=== PATIENT | male | born 1970 | race Caucasian/White ===

== ENCOUNTER 2020-11-15 02:57 | Inpatient (IN) | payer BC ==
[~2020-11-15] VITALS: Ht 188 cm; Wt 118.0 kg
[2020-11-15 03:34] LABS: BASOPHILS # (AUTO) 0.1 X10'3 (0-0.2); BASOPHILS % (AUTO) 0.6 % (0-1); EOSINOPHILS # (AUTO) 0.4 X10'3 (0-0.9); EOSINOPHILS % (AUTO) 3.9 % (0-6); HEMATOCRIT 48.7 % (42.0-52.0); HEMOGLOBIN 16.5 g/dl (14.0-17.9); LYMPHOCYTES # (AUTO) 3.9 X10'3 (1.1-4.8); LYMPHOCYTES % (AUTO) 39.8 % (21-51); MEAN CORPUSCULAR HEMOGLOBIN 31.3 PG (27.0-31.0); MEAN CORPUSCULAR HGB CONC 33.8 g/dL (33.0-36.5); MEAN CORPUSCULAR VOLUME 92.4 FL (78-98); MEAN PLATELET VOLUME 9.5 FL (7.4-10.4); MONOCYTES # (AUTO) 0.9 X10'3 (0-0.9); MONOCYTES % (AUTO) 8.9 % (2-12); NEUTROPHILS # (AUTO) 4.6 X10'3 (1.8-7.7); NEUTROPHILS % (AUTO) 46.8 % (42-75); PLATELET COUNT 185 X10'3 (140-440); RED BLOOD COUNT 5.27 X10'6 (4.70-6.10); RED CELL DISTRIBUTION WIDTH 12.6 % (11.5-14.5); WHITE BLOOD COUNT 9.9 X10'3 (4.5-11.0)
[2020-11-15] MEDS: metoprolol tartrate 1mg/ml inj IV SCH ×3 (03:36→04:00)
[2020-11-15 03:49] LABS: ALANINE AMINOTRANSFERASE 46 U/L (12-78); ALBUMIN 3.8 G/DL (3.4-5.0); ALKALINE PHOSPHATASE 85 IU/L (46-116); ANION GAP 11 (8-16); ASPARTATE AMINO TRANSFERASE 22 U/L (10-37); BILIRUBIN,TOTAL 0.3 MG/DL (0.1-1.0); BLOOD UREA NITROGEN 23 MG/DL (7-18); BUN/CREATININE RATIO 24.2 (5.4-32.0); CALCIUM 9.4 MG/DL (8.5-10.1); CHLORIDE 106 MMOL/L (99-107); CREATININE 0.95 MG/DL (0.60-1.10); GLUCOSE 141 MG/DL (70-104); SODIUM 145 MMOL/L (135-145); TOTAL CARBON DIOXIDE 28.5 MMOL/L (24-32); TOTAL PROTEIN 7.6 G/DL (6.4-8.2); eGFR 85 ML/MIN
[2020-11-15 03:52] LABS: POTASSIUM 2.9 MMOL/L (3.5-5.1)
[2020-11-15] MEDS ORDERED: potassium Cl 20 mEq SR tablet PO STA (03:58)
[2020-11-15] MEDS ORDERED: normal saline 1000ml 1,000 ML IV ONE (04:00)
[2020-11-15] MEDS ORDERED: magnesium 2GM in 50ml NS 50 ML IV ONE (04:00)
[2020-11-15] MEDS ORDERED: ASPI-1265 PO (04:24)
[2020-11-15] MEDS ORDERED: METO-395 PO (04:24)
[2020-11-15] MEDS ORDERED: HYDROcodone/acetaminophen 10/325mg tab PO PRN (05:40)
[2020-11-15] MEDS ORDERED: acetaminophen 325mg tablet PO PRN ×2 (05:40)
[2020-11-15] MEDS ORDERED: potassium Cl 20 mEq SR tablet PO PRN ×2 (05:40)
[2020-11-15] MEDS ORDERED: potassium Cl 40MEQ/1/2NS 520ml 520 ML IV PRN ×2 (05:40)
[2020-11-15] MEDS ORDERED: acetaminophen 650mg rectal suppository RC PRN (05:40)
[2020-11-15] MEDS ORDERED: diphenhydrAMINE 25mg capsule PO PRN (05:40)
[2020-11-15] MEDS ORDERED: ondansetron/PF 4mg/2ml inj IV PRN (05:40)
[2020-11-15] MEDS ORDERED: morphine 2 MG/ML inj. syringe IV PRN ×2 (05:40)
[2020-11-15] MEDS ORDERED: magnesium hydroxide 30ml (MOM) UD suspension PO PRN (05:40)
[2020-11-15] MEDS ORDERED: HYDROcodone/acetaminophen 5mg/325mg tablet PO PRN (05:40)
[2020-11-15] MEDS ORDERED: mag hydrox/Alum hydrox/simeth 30ml oral suspension PO PRN (05:40)
[2020-11-15] MEDS ORDERED: bisacodyl 10mg suppository rectal RC PRN (05:40)
[2020-11-15] MEDS ORDERED: normal saline 1000ml 1,000 ML IV SCH (05:40)
[2020-11-15] MEDS ORDERED: diphenhydrAMINE 50 mg/ml inj IV PRN (05:40)
[2020-11-15] MEDS ORDERED: heparin 10,000 units/1 ML INJ IV ONE (05:45)
[2020-11-15] MEDS ORDERED: heparin 25,000 UNIT/250ml bag 250 ML IV SCH (05:45)
[2020-11-15] MEDS ORDERED: heparin 10,000 units/1 ML INJ IV PRN (05:45)
[2020-11-15 07:59] LABS: CLARITY,URINE CLEAR (Clear); COLOR,URINE YELLOW (Yellow); GLUCOSE, URINE NEGATIVE (Neg); KETONES,URINE TRACE mg/dl (Neg); LEUKOCYTE ESTERASE ,URINE NEGATIVE (Neg); NITRITES, URINE NEGATIVE (Neg); OCCULT BLOOD,URINE TRACE-INTACT (Neg); PH,URINE 5.5 (4.8-8.0); PROTEIN,URINE NEGATIVE (Neg); UROBILINOGEN,URINE 0.2 E.U/dL (0.2-1.0)
[2020-11-15] MEDS ORDERED: metoprolol succinate 25mg (24-HOUR) SR. Tablet PO SCH (08:00)
[2020-11-15] MEDS ORDERED: K and/or MAG REPLACEMENT MC SCH (08:00)
[2020-11-15] MEDS ORDERED: metoprolol tartrate 50mg tablet PO SCH (08:00)
[2020-11-15] MEDS ORDERED: docusate sod 100mg capsule PO SCH (08:00)
[2020-11-15] MEDS ORDERED: metoprolol tartrate 25mg tablet PO SCH (08:00)
[2020-11-15 08:03] LABS: UA COLLECTION TYPE VOIDED
[2020-11-15 08:04] LABS: RBC,URINE 0-2 /HPF (0-2); WBC,URINE 0-4 /HPF (0-4)
[2020-11-15 08:05] LABS: BACTERIA,URINE NONE SEEN /HPF (Neg); MUCUS STRANDS FEW /LPF (Neg); SQUAMOUS EPITHELIAL CELL,UR NONE SEEN /LPF (FEW)
[2020-11-15 08:16] LABS: URINE AMPHETAMINE SCREEN NEGATIVE (Neg); URINE BARBITUATE SCREEN NEGATIVE (Neg); URINE BENZODIAZEPINES SCREEN NEGATIVE (Neg); URINE CANNABINOID SCREEN NEGATIVE (Neg); URINE COCAINE SCREEN NEGATIVE (Neg); URINE METHADONE SCREEN NEGATIVE (Neg); URINE OPIATE SCREEN NEGATIVE (Neg); URINE PHENCYCLIDINE SCREEN NEGATIVE (Neg)
[2020-11-15 09:07] LABS: BASOPHILS # (AUTO) 0.1 X10'3 (0-0.2); EOSINOPHILS # (AUTO) 0.2 X10'3 (0-0.9); EOSINOPHILS % (AUTO) 3.2 % (0-6); HEMATOCRIT 47.2 % (42.0-52.0); HEMOGLOBIN 15.7 g/dl (14.0-17.9); LYMPHOCYTES # (AUTO) 2.6 X10'3 (1.1-4.8); LYMPHOCYTES % (AUTO) 33.6 % (21-51); MEAN CORPUSCULAR HEMOGLOBIN 30.8 PG (27.0-31.0); MEAN CORPUSCULAR HGB CONC 33.2 g/dL (33.0-36.5); MEAN CORPUSCULAR VOLUME 92.7 FL (78-98); MEAN PLATELET VOLUME 9.8 FL (7.4-10.4); MONOCYTES # (AUTO) 0.5 X10'3 (0-0.9); NEUTROPHILS # (AUTO) 4.3 X10'3 (1.8-7.7); NEUTROPHILS % (AUTO) 56.2 % (42-75); PLATELET COUNT 181 X10'3 (140-440); RED BLOOD COUNT 5.09 X10'6 (4.70-6.10); RED CELL DISTRIBUTION WIDTH 12.9 % (11.5-14.5); WHITE BLOOD COUNT 7.7 X10'3 (4.5-11.0)
[2020-11-15 09:21] LABS: PARTIAL THROMBOPLASTIN TIME 38 SECONDS (22-32)
[2020-11-15 09:22] LABS: D-DIMER < 0.19 MG/L FEU (0-0.50)
[2020-11-15 09:31] LABS: MAGNESIUM 2.3 MG/DL (1.5-2.4); PHOSPHORUS 3.1 MG/DL (2.3-4.5)
[2020-11-15 09:32] LABS: ETHANOL < 0.010 GM/DL (0.0-0.010); HEMOGLOBIN A1C 5.6 % (4.5-6.2); POTASSIUM 4.6 MMOL/L (3.5-5.1)
[2020-11-15 12:06] VITALS: BP 124/79
[2020-11-15] MEDS ORDERED: temazepam 15mg capsule PO PRN (21:00)
== END 2020-11-15 17:52 | disposition home or self-care (01) | DRG 310 ==
LOC: ER 02:58 → ED HOLD 05:39
PROVIDERS: ADMIT Family Medicine; ATTEND Family Medicine
DX: I48.20 Chronic atrial fibrillation, unspecified (principal); E87.6 Hypokalemia; E66.9 Obesity, unspecified; I10 Essential (primary) hypertension; E78.5 Hyperlipidemia, unspecified; Z80.8 Family history of malignant neoplasm of other organs or systems; I48.0 Paroxysmal atrial fibrillation; Z68.33 Body mass index [BMI] 33.0-33.9, adult; E86.0 Dehydration; I45.10 Unspecified right bundle-branch block; E78.00 Pure hypercholesterolemia, unspecified; Z79.82 Long term (current) use of aspirin; F17.210 Nicotine dependence, cigarettes, uncomplicated
CPT/HCPCS: 36415; 71045; 80053; 80305; 80320; 81001; 83036; 83735; 83880; 84100; 84132; 84443; 84484; 85025; 85379; 85610; 85730; 93005; G0378; J1644; J3475; J3490; J7030

== ENCOUNTER 2020-12-17 03:30 | Emergency (ER) | payer BC ==
[~2020-12-17] VITALS: Ht 188 cm; Wt 127.3 kg
[~2020-12-17 03:30] MED LIST: ASPI-1265 PO; METO-395 PO
[2020-12-17] MEDS ORDERED: metoprolol tartrate 1mg/ml inj IV SCH (03:55)
--- NOTE | 2020-12-17 04:12 | NUR ---
PT CONVERTED BACK TO NSR WHILE RESTING ON GURNEY - REPEAT EKG DONE AND STRIPS PRINTED FOR CHART
[2020-12-17 04:14] LABS: BASOPHILS % (AUTO) 0.5 % (0-1); EOSINOPHILS # (AUTO) 0.4 X10'3 (0-0.9); EOSINOPHILS % (AUTO) 4.5 % (0-6); HEMATOCRIT 46.5 % (42.0-52.0); LYMPHOCYTES # (AUTO) 3.2 X10'3 (1.1-4.8); LYMPHOCYTES % (AUTO) 40.3 % (21-51); MEAN CORPUSCULAR HEMOGLOBIN 31.7 PG (27.0-31.0); MEAN CORPUSCULAR HGB CONC 34.4 g/dL (33.0-36.5); MEAN CORPUSCULAR VOLUME 92.2 FL (78-98); MEAN PLATELET VOLUME 8.9 FL (7.4-10.4); MONOCYTES # (AUTO) 0.6 X10'3 (0-0.9); MONOCYTES % (AUTO) 7.5 % (2-12); NEUTROPHILS # (AUTO) 3.8 X10'3 (1.8-7.7); NEUTROPHILS % (AUTO) 47.2 % (42-75); PLATELET COUNT 183 X10'3 (140-440); RED BLOOD COUNT 5.04 X10'6 (4.70-6.10); RED CELL DISTRIBUTION WIDTH 12.8 % (11.5-14.5)
[2020-12-17 04:24] LABS: ALANINE AMINOTRANSFERASE 48 U/L (12-78); ALBUMIN 3.9 G/DL (3.4-5.0); ALBUMIN/GLOBULIN RATIO 1.1 (1.1-1.5); ALKALINE PHOSPHATASE 88 IU/L (46-116); ANION GAP 12 (8-16); ASPARTATE AMINO TRANSFERASE 23 U/L (10-37); BILIRUBIN,TOTAL 0.4 MG/DL (0.1-1.0); BLOOD UREA NITROGEN 17 MG/DL (7-18); CALCIUM 8.7 MG/DL (8.5-10.1); CHLORIDE 103 MMOL/L (99-107); CREATININE 0.81 MG/DL (0.60-1.10); GLUCOSE 124 MG/DL (70-104); POTASSIUM 3.4 MMOL/L (3.5-5.1); SODIUM 141 MMOL/L (135-145); TOTAL PROTEIN 7.4 G/DL (6.4-8.2); eGFR > 90 ML/MIN
[2020-12-17] MEDS ORDERED: potassium Cl 20 mEq SR tablet PO STA (04:33)
[2020-12-17 04:51] VITALS: BP 122/80
== END 2020-12-17 04:53 | disposition home or self-care (01) ==
LOC: ER 03:31
DX: I48.0 Paroxysmal atrial fibrillation (principal); E87.6 Hypokalemia; Z72.89 Other problems related to lifestyle; Z79.82 Long term (current) use of aspirin; Z79.899 Other long term (current) drug therapy
CPT/HCPCS: 36415; 71045; 80053; 83880; 84484; 85025; 93005; 99285

== ENCOUNTER 2021-07-02 02:53 | Emergency (ER) | payer BC ==
[~2021-07-02] VITALS: Ht 190.5 cm; Wt 122.7 kg
[2021-07-02 03:33] LABS: BASOPHILS # (AUTO) 0.1 X10'3 (0-0.2); BASOPHILS % (AUTO) 0.6 % (0-1); EOSINOPHILS # (AUTO) 0.4 X10'3 (0-0.9); EOSINOPHILS % (AUTO) 3.9 % (0-6); HEMATOCRIT 47.5 % (42.0-52.0); HEMOGLOBIN 16.1 g/dl (14.0-17.9); LYMPHOCYTES # (AUTO) 4.4 X10'3 (1.1-4.8); LYMPHOCYTES % (AUTO) 41.9 % (21-51); MEAN CORPUSCULAR HEMOGLOBIN 30.3 PG (27.0-31.0); MEAN CORPUSCULAR HGB CONC 33.8 g/dL (33.0-36.5); MEAN CORPUSCULAR VOLUME 89.5 FL (78-98); MEAN PLATELET VOLUME 8.7 FL (7.4-10.4); MONOCYTES % (AUTO) 9.7 % (2-12); NEUTROPHILS # (AUTO) 4.6 X10'3 (1.8-7.7); NEUTROPHILS % (AUTO) 43.9 % (42-75); PLATELET COUNT 219 X10'3 (140-440); RED CELL DISTRIBUTION WIDTH 12.9 % (11.5-14.5); WHITE BLOOD COUNT 10.6 X10'3 (4.5-11.0)
[2021-07-02 03:38] LABS: ALANINE AMINOTRANSFERASE 42 U/L (12-78); ALBUMIN/GLOBULIN RATIO 1.2 (1.1-1.5); ALKALINE PHOSPHATASE 80 IU/L (46-116); ANION GAP 13 (8-16); ASPARTATE AMINO TRANSFERASE 26 U/L (10-37); BILIRUBIN,TOTAL 0.4 MG/DL (0.1-1.0); BLOOD UREA NITROGEN 19 MG/DL (7-18); CALCIUM 9.1 MG/DL (8.5-10.1); CHLORIDE 105 MMOL/L (99-107); GLUCOSE 105 MG/DL (70-104); POTASSIUM 3.3 MMOL/L (3.5-5.1); SODIUM 144 MMOL/L (135-145); TOTAL CARBON DIOXIDE 25.7 MMOL/L (24-32); TOTAL PROTEIN 7.4 G/DL (6.4-8.2); eGFR 79 ML/MIN
[2021-07-02 03:47] LABS: MAGNESIUM 2.3 MG/DL (1.5-2.4)
[2021-07-02] MEDS ORDERED: metoprolol tartrate 1mg/ml inj IV PRN (03:50)
[2021-07-02 04:30] VITALS: BP 136/83
[2021-07-02] MEDS ORDERED: potassium Cl 20 mEq SR tablet PO STA (04:31)
== END 2021-07-02 05:15 | disposition home or self-care (01) ==
LOC: ER 02:54
DX: I48.0 Paroxysmal atrial fibrillation (principal); E87.6 Hypokalemia; R00.0 Tachycardia, unspecified; I48.91 Unspecified atrial fibrillation; Z72.89 Other problems related to lifestyle; Z79.82 Long term (current) use of aspirin; Z79.899 Other long term (current) drug therapy
CPT/HCPCS: 36415; 71045; 80053; 83735; 83880; 84484; 85025; 93005; 99285

== ENCOUNTER 2023-04-30 06:39 | Emergency (ER) | payer BC ==
[~2023-04-30] VITALS: Ht 188 cm; Wt 127.3 kg
[2023-04-30] MEDS ORDERED: CYCL-1 PO (07:57)
[2023-04-30 09:08] VITALS: BP 161/96; PULSE 70; TEMP 97.8; O2SAT 99
[2023-04-30 09:10] VITALS: RESP 13
[2023-04-30 09:23] LABS: ALANINE AMINOTRANSFERASE 50 U/L (12-78); ALBUMIN 3.9 G/DL (3.4-5.0); ALBUMIN/GLOBULIN RATIO 1.1 (1.1-1.5); ALKALINE PHOSPHATASE 92 IU/L (46-116); ANION GAP 5 (8-16); ASPARTATE AMINO TRANSFERASE 21 U/L (10-37); BILIRUBIN,TOTAL 0.4 MG/DL (0.1-1.0); BLOOD UREA NITROGEN 16 MG/DL (7-18); CALCIUM 9.2 MG/DL (8.5-10.1); CHLORIDE 106 MMOL/L (99-107); GLUCOSE 111 MG/DL (70-104); POTASSIUM 4.9 MMOL/L (3.5-5.1); SODIUM 139 MMOL/L (135-145); TOTAL CARBON DIOXIDE 28.5 MMOL/L (24-32); TOTAL PROTEIN 7.3 G/DL (6.4-8.2); eCRCL 103 ML/MIN; eGFR 79 ML/MIN
[2023-04-30 09:30] LABS: PRO BRAIN NATRIURETIC PEPTIDE 68 PG/ML (0-125)
[2023-04-30 09:35] LABS: BASOPHILS % (AUTO) 0.6 % (0-1); EOSINOPHILS # (AUTO) 0.2 X10'3 (0-0.9); EOSINOPHILS % (AUTO) 2.5 % (0-6); HEMATOCRIT 46.6 % (42.0-52.0); HEMOGLOBIN 15.5 g/dl (14.0-17.9); LYMPHOCYTES # (AUTO) 1.9 X10'3 (1.1-4.8); LYMPHOCYTES % (AUTO) 24.7 % (21-51); MEAN CORPUSCULAR HEMOGLOBIN 29.9 PG (27.0-31.0); MEAN CORPUSCULAR HGB CONC 33.2 g/dL (33.0-36.5); MEAN CORPUSCULAR VOLUME 89.9 FL (78-98); MEAN PLATELET VOLUME 8.8 FL (7.4-10.4); MONOCYTES # (AUTO) 0.4 X10'3 (0-0.9); MONOCYTES % (AUTO) 5.8 % (2-12); NEUTROPHILS # (AUTO) 5.2 X10'3 (1.8-7.7); NEUTROPHILS % (AUTO) 66.4 % (42-75); PLATELET COUNT 204 X10'3 (140-440); RED BLOOD COUNT 5.18 X10'6 (4.70-6.10); RED CELL DISTRIBUTION WIDTH 13.1 % (11.5-14.5); WHITE BLOOD COUNT 7.8 X10'3 (4.5-11.0)
== END 2023-04-30 10:09 | disposition home or self-care (01) ==
LOC: ER 06:40
DX: R07.89 Other chest pain (principal)
CPT/HCPCS: 36415; 71045; 80053; 83880; 84484; 85025; 93005; 99285

== ENCOUNTER 2023-08-11 00:30 | Emergency (ER) | payer BC ==
[~2023-08-11] VITALS: Ht 188 cm; Wt 129.0 kg
[~2023-08-11 00:30] MED LIST changes: +CYCL-1 PO
[2023-08-11] MEDS ORDERED: normal saline 1000ml 1,000 ML IV ONE (00:45)
[2023-08-11 01:01] LABS: EOSINOPHILS # (AUTO) 0.5 X10'3 (0-0.9); HEMOGLOBIN 16.7 g/dl (14.0-17.9)
[2023-08-11] MEDS: metoprolol tartrate 1mg/ml inj IV SCH ×2 (01:05→01:17)
[2023-08-11 01:09] LABS: BASOPHILS # (AUTO) 0.1 X10'3 (0-0.2); BASOPHILS % (AUTO) 1.2 % (0-1); EOSINOPHILS % (AUTO) 3.7 % (0-6); HEMATOCRIT 48.8 % (42.0-52.0); LYMPHOCYTES # (AUTO) 5.2 X10'3 (1.1-4.8); LYMPHOCYTES % (AUTO) 42.1 % (21-51); MEAN CORPUSCULAR HEMOGLOBIN 30.3 PG (27.0-31.0); MEAN CORPUSCULAR HGB CONC 34.2 g/dL (33.0-36.5); MEAN CORPUSCULAR VOLUME 88.6 FL (78-98); MEAN PLATELET VOLUME 9.1 FL (7.4-10.4); MONOCYTES % (AUTO) 8.5 % (2-12); NEUTROPHILS # (AUTO) 5.5 X10'3 (1.8-7.7); NEUTROPHILS % (AUTO) 44.5 % (42-75); PLATELET COUNT 243 X10'3 (140-440); RED BLOOD COUNT 5.51 X10'6 (4.70-6.10); RED CELL DISTRIBUTION WIDTH 13.3 % (11.5-14.5); WHITE BLOOD COUNT 12.3 X10'3 (4.5-11.0)
[2023-08-11 01:17] LABS: ALANINE AMINOTRANSFERASE 53 U/L (12-78); ALBUMIN/GLOBULIN RATIO 1.1 (1.1-1.5); ALKALINE PHOSPHATASE 90 IU/L (46-116); ANION GAP 12 (8-16); ASPARTATE AMINO TRANSFERASE 22 U/L (10-37); BILIRUBIN,TOTAL 0.3 MG/DL (0.1-1.0); BLOOD UREA NITROGEN 26 MG/DL (7-18); BUN/CREATININE RATIO 24.3 (10.0-20.0); CALCIUM 9.1 MG/DL (8.5-10.1); CHLORIDE 99 MMOL/L (99-107); CREATININE 1.07 MG/DL (0.60-1.10); GLUCOSE 129 MG/DL (70-104); SODIUM 136 MMOL/L (135-145); TOTAL CARBON DIOXIDE 25.2 MMOL/L (24-32); TOTAL PROTEIN 7.6 G/DL (6.4-8.2); eCRCL 95 ML/MIN; eGFR 73 ML/MIN
[2023-08-11 01:24] LABS: ETHANOL < 10 MG/DL (<10); PRO BRAIN NATRIURETIC PEPTIDE 123 PG/ML (0-125); THYROID STIMULATING HORMONE 2.89 ulU/ml (0.34-4.50)
[2023-08-11 01:27] LABS: POTASSIUM 3.4 MMOL/L (3.5-5.1)
[2023-08-11] MEDS ORDERED: potassium Cl 20 mEq SR tablet PO STA (01:45)
[2023-08-11 02:49] VITALS: BP 120/74; PULSE 82; RESP 16; TEMP 98.1; O2SAT 98
== END 2023-08-11 02:49 | disposition home or self-care (01) ==
LOC: ER 00:30
DX: I48.20 Chronic atrial fibrillation, unspecified (principal); E87.6 Hypokalemia; Z79.899 Other long term (current) drug therapy
CPT/HCPCS: 71045; 80053; 80320; 83880; 84443; 84484; 85025; 93005; 96374; 99285; J3490; J7030; 96361